=== PATIENT | male | born 2000 | race Caucasian/White ===

== ENCOUNTER 2020-09-16 17:34 | Emergency (ER) | payer OTHER ==
[2020-09-16] MEDS: Diphtheria,Pertussis(Acell),Tetanus Vaccine 0.5 ML Syringe IM ONE (18:00)
--- NOTE | 2020-09-16 18:08 | EDM.PDOC ---
ED HPI GENERAL MEDICAL PROBLEM - General Stated Complaint: CUT OFF THE TIP OF THUMB Time Seen by Provider: 09/16/20 17:51 - History of Present Illness INITIAL COMMENTS - FREE TEXT/NARRATIVE: Faizan is a 20 y/o male who comes to the ER with an injury to his right thumb. 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 The wound is of course bleeding. He comes here for evaluation. Review of Systems - Review of Systems Review Of Systems: See Below Constitutional: Reports: No Symptoms Eyes: Reports: No Symptoms Ears: Reports: No Symptoms Nose: Reports: No Symptoms Mouth/Throat: Reports: No Symptoms Respiratory: Reports: No Symptoms Cardiovascular: Reports: No Symptoms GI/Abdominal: Reports: No Symptoms Genitourinary: Reports: No Symptoms Musculoskeletal: Reports: Other (Right thumb injury) Skin: Reports: No Symptoms Neurological: Reports: No Symptoms Psychiatric: Reports: No Symptoms ED EXAM, GENERAL - Physical Exam Exam: See Below Exam Limited By: No Limitations General Appearance: Alert, WD/WN, No Apparent Distress (Adult male) Head: Atraumatic, Normocephalic Respiratory/Chest: No Respiratory Distress GI/Abdominal: Other (Deferred) (Male) Exam: Deferred Rectal (Males) Exam: Deferred Neurological: Alert, Oriented, CN II-XII Intact, Normal Cognition, Normal Gait, No Motor/Sensory Deficits Psychiatric: Normal Affect, Normal Mood Skin Exam: Warm, Dry, Intact, Wound/Incision (Note avulsion type injury to tip of right thumb, oozing blood. ROM normal.) Course - Vital Signs Text/Narrative:: 1751 The patient was seen by the [facility]. The wound on his right thumb was not worthy of sutures, but it continued to bleed. The wound was packed with Surgicel and then dressed with gauze and coban. His tetanus was updated. He was given instructions for wound care and left the ER in stable condition. - Orders/Labs/Meds Orders: Active Orders 24 hr Category Date Time Status Vaccines to be Administered [RC] PER UNIT ROUTINE Care 09/16/20 17:52 Ordered Departure - Departure Time of Disposition: 18:01 Disposition: Home, Self-Care 01 Clinical Impression: Work related injury, Need for Tdap vaccination Avulsion, finger tip Qualifiers: Encounter type: initial encounter Qualified Code(s): S61.209A - Unspecified open wound of unspecified finger without damage to nail, initial encounter - Discharge Information Instructions: VIS, Tetanus, Diphtheria, and Pertussis (Tdap) - [facility] (10/08/2019), Deep Skin Avulsion Additional Instructions: -Ibuprofen 400mg oral every 6 hours as needed for pain -Acetaminophen 325mg 2-3 tablets oral every 4-6 hours as needed for pain -Keep dressing to wound dry and intact for 24 hours, then you may wash the wound daily with soap and water. If the wound continues to bleeding, you may redress it and apply a new piece of the clotting material that you were sent home with. -Watch for signs of infection and seek care at the clinic or ER if needed -Your Tetanus was updated at today's visit. Last TDap was current in 2009. -Report incident to your employer and complete necessary forms with them. - My Orders Last 24 Hours: My Active Orders 09/16/20 17:52 Vaccines to be Administered [RC] PER UNIT ROUTINE - Assessment/Plan Last 24 Hours: My Active Orders 09/16/20 17:52 Vaccines to be Administered [RC] PER UNIT ROUTINE
== END 2020-09-16 18:19 | disposition home or self-care (01) ==
LOC: VM.ED 17:34
DX: S61.001A Unspecified open wound of right thumb without damage to nail, initial encounter (principal); Z23 Encounter for immunization; W26.0XXA Contact with knife, initial encounter
CPT/HCPCS: 90471; 90715; 99283

== ENCOUNTER 2021-10-07 18:41 | Emergency (ER) | payer BC, MEDICAID, OTHER ==
[2021-10-07] MEDS ORDERED: Prochlorperazine 10 MG/2 ML SDV IV ONE (18:46)
[2021-10-07] MEDS ORDERED: diphenhydrAMINE 50 MG/ML SDV IVPUSH ONE (18:46)
[2021-10-07] MEDS ORDERED: Ketorolac 30 MG/ML SDV IVPUSH ONE (18:46)
[2021-10-07] MEDS ORDERED: Sodium Chloride 0.9% 1,000 ML IV ONE (18:47)
[2021-10-07] MEDS ORDERED: Cyclobenzaprine 10 MG Tab PO ONE (19:15)
[2021-10-07 19:36] LABS: CHLORIDE,CL 97 mmol/L (98-107); SODIUM,NA 136 mmol/L (136-145)
== END 2021-10-07 20:20 | disposition home or self-care (01) ==
LOC: VM.ED 18:41
DX: G43.909 Migraine, unspecified, not intractable, without status migrainosus (principal); M62.838 Other muscle spasm; Z88.8 Allergy status to other drugs, medicaments and biological substances
CPT/HCPCS: 36415; 80053; 83605; 85025; 96374; 96375; 99284; 99284-25; A9270-GY; J0780; J1200; J1885; J7030

== ENCOUNTER 2024-10-29 16:52 | Emergency (ER) | payer MEDICAID, OTHER ==
[2024-10-29] MEDS ORDERED: Sodium Chloride 0.9% 10 ML Syringe FLUSH PRN (17:05)
[2024-10-29] MEDS: Metoclopramide 10 MG/2 ML SDV IVPUSH ONE (17:30)
[2024-10-29] MEDS: diphenhydrAMINE 50 MG/ML SDV IVPUSH ONE (17:30)
[2024-10-29] MEDS: Ketorolac 15 MG/ML SDV IVPUSH ONE (17:30)
== END 2024-10-29 18:08 | disposition home or self-care (01) ==
LOC: VM.ED 16:52
DX: G43.909 Migraine, unspecified, not intractable, without status migrainosus (principal); Z88.8 Allergy status to other drugs, medicaments and biological substances; Z79.899 Other long term (current) drug therapy
CPT/HCPCS: 96374; 96375; 99283; 99283-25; J1200; J1885; J2765